=== PATIENT | male | born 1935 | race Caucasian/White ===

== ENCOUNTER 2017-08-13 09:23 | Inpatient (IN) | payer MEDICARE, OTHER ==
[2017-08-13 10:09] LABS: #Lymphocytes 0.7 thou/uL (1.20-3.40); #Monocytes 1.4 thou/uL (0.11-0.59); #Neutrophils 15.6 thou/uL (1.40-6.50); %Eosinophils 0.1 % (0.0-10.0); %Lymphocytes 3.7 % (21.0-51.0); %Monocytes 7.9 % (0.0-10.0); Hematocrit 37.8 % (42.0-52.0); Mean Platelet Volume 8.9 fL (7.4-10.4); Red Blood Cell (RBC) Count 4.14 mill/uL (4.70-6.10); White Blood Cell (WBC) Count 17.6 thou/uL (4.8-10.8)
[2017-08-13 10:23] LABS: Bilirubin Negative (Negative); Blood, Urine Large (Negative); Glucose, Urine (Dipstick) Negative (Negative); Ketone, Urine Trace mg/dL (Negative); Nitrite Positive (Negative); Protein, Urine (Dipstick) 100 mg/dL (Neg-Trace)
[2017-08-13 10:25] LABS: Bacteria/HPF 4+ HPF (None Seen); Hyaline Casts/LPF 0-3 HYALINE CAST LPF (0-3 Hyaline); RBC/HPF 21-50 HPF (0-3); Squamous Epithelial 0-3 HPF (0-3)
[2017-08-13 10:26] LABS: Lactic Acid - Sepsis 1.1 mmol/L (0.5-2.2)
[2017-08-13 10:32] LABS: PTT 40.1 SEC (22.9-36.1); Prothrombin Time 15.7 SEC (12.0-14.7)
[2017-08-13 10:50] LABS: ALT (SGPT) 10 U/L (8-55); AST (SGOT) 12 U/L (5-34); Alkaline Phosphatase 83 U/L (40-150); Anion Gap 13 mmol/L (10-20); BUN (Urea Nitrogen) 37 mg/dL (8.4-25.7); Bilirubin, Total 0.7 mg/dL (0.2-1.2); Calc. Creatinine Clearance 0 mL/min (70-130); Calcium 9.4 mg/dL (7.8-10.44); Carbon Dioxide 25 mmol/L (23-31); Chloride 102 mmol/L (98-107); Estimated GFR-MDRD 28; Globulin 3.6 g/dL (2.4-3.5); Protein, Total 7.2 g/dL (5.8-8.1)
[2017-08-13 10:53] LABS: Troponin I 0.023 ng/mL (< 0.028)
[2017-08-13 10:54] LABS: CK (CPK) 78 U/L (30-200); Lipase 17 U/L (8-78)
--- NOTE | 2017-08-13 11:20 | RAD ---
PORTABLE CHEST ONE VIEW: Date: 08-13-17 Time: 11:05 a.m. History: Fever. FINDINGS: Comparison made with exam of 07-19-16. The heart size is borderline but stable. Left sided ICD remains in place. The aorta is tortuous with aeration of the right hemidiaphragm. Chronic changes in the lung wild are again seen. No consolid ation, pneumothorax, gilberto pleural edema or pleural effusions are identified. IMPRESSION: No acute process. POS: JESSIKAH
[2017-08-13] MEDS ORDERED: cefTRIAXone\\ROCEPHIN 1 GM, Syringe 0.4 ML in Sterile Water 9.6 ML SLOW IVP SCH (11:30)
--- NOTE | 2017-08-13 11:31 | ULT ---
VENOUS DOPPLER ULTRASOUND OF THE LEFT LOWER EXTREMITY: Date: 08/13/17 HISTORY: Left lower extremity swelling and pain. TECHNIQUE: Sky scale ultrasound with color flow and spectral Doppler imaging of the deep venous system of the left lower extremity is performed. FINDINGS: There is good flow, compression, and augmentation noted in the left common femoral, femoral, deep fe moral, popliteal, posterior tibial, and greater saphenous veins. IMPRESSION: No evidence of deep venous thrombosis in the left lower extremity. POS: JANIA
[2017-08-13] MEDS ORDERED: Milk Of Magnesia 30 ML UDCUP PO PRN (13:00)
[2017-08-13] MEDS ORDERED: Artificial Tears 18 DROP/0.9 ML EA EYE PRN (13:00)
[2017-08-13] MEDS ORDERED: Loratadine 10 MG TAB PO PRN (13:00)
[2017-08-13] MEDS ORDERED: Sodium Chloride 0.65% Nasal 44 ML BOT EA NARE PRN (13:00)
[2017-08-13] MEDS ORDERED: Eucerin (Mineral Oil/Petrolatum,White) 30 gm Jar TOP PRN (13:00)
[2017-08-13] MEDS ORDERED: Dextrose 50% Abboject 50 ML SYRINGE SLOW IVP PRN (13:00)
[2017-08-13] MEDS ORDERED: HYDROcodone/Acetaminophen 5/325 mg Tablet PO PRN (13:00)
[2017-08-13] MEDS ORDERED: hydrALAZINE 20 MG/ML VIAL SLOW IVP PRN (13:00)
[2017-08-13] MEDS ORDERED: Ondansetron HCl/PF 4 MG/2 ML Vial IVP PRN (13:00)
[2017-08-13] MEDS ORDERED: Mag-Al 1200 mg/1200 mg/30 ML UDCUP PO PRN (13:00)
[2017-08-13] MEDS ORDERED: HumaLOG 300 UNITS/3 ML VIAL SC PRN ×2 (13:00)
[2017-08-13] MEDS ORDERED: Dextrose 5% in Water 1,000 ML IV PRN (13:00)
[2017-08-13] MEDS ORDERED: Ondansetron ODT 4 MG TAB PO PRN (13:00)
[2017-08-13] MEDS ORDERED: cefTRIAXone\\ROCEPHIN 1 GM in Sodium Chloride 0.9% 100 ML IVPB SCH (13:00)
[2017-08-13] MEDS ORDERED: Sodium Chloride 0.9% 1,000 ML IV SCH (13:00)
[2017-08-13] MEDS ORDERED: Loperamide HCl 2 MG CAP PO PRN (13:00)
[2017-08-13] MEDS ORDERED: Senokot 8.6 MG TAB PO PRN (13:00)
[2017-08-13] MEDS ORDERED: Chloraseptic Spray 180 ml Bottle PO PRN (13:00)
[2017-08-13] MEDS ORDERED: Diabetic Tussin 200 MG/10 ML UDCUP PO PRN (13:00)
[2017-08-13 13:12] VITALS: BMI 24.8
[2017-08-13] MEDS ORDERED: PROVENTIL INHALER 6.7 G (200 INHALATIONS) INH PRN (14:04)
--- NOTE | 2017-08-13 14:39 | HP ---
PRIMARY CARE PHYSICIAN: [facility]. REASON FOR ADMISSION: Sepsis, urinary tract infection. HISTORY OF PRESENT ILLNESS: An 82-year-old male who has history of hypertension, diabetes type 2, h ypothyroidism and chronic kidney disease stage 3, who presented to the emergency room with complaint of generalized weakness. Patient reports that for the last 1 week, he is gradually getting more an d more weak. Initially, he was having increased frequency of urination. Last night, he was having difficulty urination. He was having burning discomfort and he was only able to void little amount b ecause of severe pain. Overnight, he became more and more weak. He was not able to ambulate and he was requiring lot of help. This was pretty much unusual for him and that is why decided to ca ll the paramedics. The patient was very weak requiring lot of assistance to make him ambulate and when he arrived in e emergency room, he was hemodynamically stable. At home, patient was having weakness. He was feeling chills, but he did not have any fever. He was not having any nausea, vomiting, diarrhea. He denies any chest pain, palpitations, or cough. He d enies any flu-like illness. He denies any fall or trauma. ALLERGIES: PENICILLIN. CURRENT HOME MEDICATIONS: Coreg 25 mg p.o. twice daily, Synthroid 75 mcg p.o. daily, glipizide 10 m g twice daily, lisinopril 40 mg p.o. daily. REVIEW OF SYSTEMS: The following complete review of systems was negative, unless otherwise mentione d in the HPI or below: CONSTITUTIONAL: Weight loss or gain, ability to conduct usual activities. SKIN: Rash, itching. EYES: Double vision, pain. ENT/MOUTH: Nose bleeding, neck stiffness, pain, tenderness. CARDIOVASCULAR: Palpitations, dyspnea on exertion, orthopnea. RESPIRATORY: Shortness of breath, wheezing, cough, hemoptysis, fever or night sweats. GASTROINTESTINAL: Poor appetite, abdominal pain, heartburn, nausea, vomiting, constipation, or diar karly. GENITOURINARY: Urgency, frequency, dysuria, nocturia. MUSCULOSKELETAL: Pain, swelling. NEUROLOGIC/PSYCHIATRIC: Anxiety, depression. ALLERGY/IMMUNOLOGIC: Skin rash, bleeding tendency. Please see my HPI for pertinent positive and negative. All other review of systems was reviewed and negative except as mentioned in the HPI. PAST MEDICAL HISTORY: History of cardiomyopathy treated with pacemaker/AICD, diabetes type 2, hyper tension, dyslipidemia, chronic kidney disease stage 3. PAST SURGICAL HISTORY: Back surgery, AICD/pacemaker placement. PAST PSYCHIATRIC HISTORY: Reviewed and negative. SOCIAL HISTORY: Patient is . He lives at home with his . He denies any tobacco, alcoho l or illicit drug abuse. FAMILY HISTORY: No strong family history of premature coronary artery disease, stroke or cancer. EMERGENCY ROOM COURSE: Patient was given IV fluid 2 liter, Rocephin 1 gram and Levaquin 750 mg. PHYSICAL EXAMINATION: VITAL SIGNS: On arrival, blood pressure 153/63, pulse 70, respiratory rate 21, temperature 98.7, sa turation 94% on room air. Weight 81.6 kilograms. GENERAL: Patient is currently alert, awake, hard of hearing, no obvious acute distress. HEAD: Normocephalic, atraumatic. EYES: Pupils round, reactive to light. Extraocular muscle intact. ENT: Oropharynx within normal limits. Moist mucous membranes. No oral lesions. No pharyngeal comfort thema, no exudates. NECK: Supple. Range of motion is normal. No meningeal signs of irritation. LUNGS: Clear to auscultation without any rhonchi or rales. CARDIAC: S1, S2 regular without any murmur. ABDOMEN: Soft, bowel sounds present, nontender, nondistended. No organomegaly, no suprapubic tende rness. BACK: Unremarkable, no CVA tenderness. EXTREMITIES: Upper extremity: Passive movement of all joints are normal. Lower extremity: No cordell ma. Good peripheral pulsation. SKIN: No skin rash. HEMATOLOGIC: No lymphadenopathy. PSYCHIATRIC: Normal affect. SIGNIFICANT LABS: EKG showing pacemaker rhythm. Chest x-ray based on my review, no acute cardiopul monary process. Ultrasound of lower extremity negative for DVT. CBC: WBC 17.6, hemoglobin 12.3, platelets 163. INR 1.2. BMP: Sodium 135, potassium 4.5, chloride 102, carbon dioxide 25, BUN 37, creatinine 2.22, glucose 287, calcium 9.4. Lactic acid 1.1. LFT: AST 12, ALT 10, alkaline phosphatase 83, albumin 3.6, CK-MB 0.9. Troponin I 0.023, CK is 78. BNP 271.9, lipase 17. Urinalysis is suggestive of urinary tract infection. Influenza screen negative. ASSESSMENT AND PLAN/IMPRESSION: 1. Sepsis, likely due to urinary tract infection secondary to acute cystitis. Patient is given IV fluid in the emergency room. The patient is given appropriate IV antibiotic therapy with Rocephin a nd Levaquin. We will follow up on blood and urine culture result. 2. Urinary tract infection with acute cystitis. Patient has classic symptoms of urinary tract infe ction. Patient is kept on Rocephin and levofloxacin based on renally adjusted dose and we will foll ow up on culture result and change antibiotic therapy accordingly. 3. Generalized weakness, likely due to underlying infection and sepsis with urinary tract infection . Flu test is negative. The patient will need PT, OT while in hospital and based on that, we will decide whether he needs any rehab or correction home placement before discharge. 4. Acute on chronic kidney failure. The patient is going to receive 70 mL per hour for another 1 l iter of fluid. We will avoid too much fluids because of his history of cardiomyopathy to prevent an y fluid overload status. We will repeat BMP tomorrow. The patient has received 2 liters of IV flui d in the emergency room. 5. Elevated BNP. Patient has history of cardiomyopathy. We will obtain echocardiography to determ ine the type of cardiomyopathy. We will continue Coreg 25 mg p.o. daily, lisinopril 20 mg p.o. bennie y. 6. Hypothyroidism. We will continue Synthroid 100 mcg p.o. daily. 7. Gastroesophageal reflux disease. We will continue Protonix 40 mg p.o. daily. 8. Dyslipidemia. We will continue Zocor 40 mg p.o. at bedtime. 9. Diabetes type 2. We will continue glipizide 10 mg p.o. twice daily. Diabetic diet will be give n and insulin as per sliding scale per protocol. 10. Deep venous thrombosis prophylaxis, heparin 5000 units subQ twice daily. 11. Gastrointestinal prophylaxis, Protonix 40 mg p.o. daily. 12. CODE STATUS: The patient is FULL CODE. The patient's is surrogate decision maker. Disposition plan based on clinical course. We are expecting patient's stay in hospital more than 2 midnights. Plan of care discussed with the patient at bedside in the emergency room.
[2017-08-13] MEDS: glipiZIDE 10 MG TAB PO SCH (16:31)
[2017-08-13] MEDS: Atorvastatin Calcium 20 MG TAB PO SCH (20:36)
[2017-08-13] MEDS: Carvedilol 25 MG TAB PO SCH (20:37)
[2017-08-13] MEDS: Lisinopril 20 MG TAB PO SCH (20:37)
[2017-08-13] MEDS: Zolpidem Tartrate 5 MG TAB PO PRN (20:37)
[2017-08-13] MEDS: Acetaminophen 325 MG TAB PO PRN (20:37)
[2017-08-13] MEDS: Heparin 5,000 UNITS/ML VIAL SC SCH (20:39)
[2017-08-13] MEDS: Brimonidine Tartrate 0.2% Ophth Soln 5 ml Bottle EA EYE SCH (20:40)
[2017-08-13] MEDS ORDERED: Latanoprost 0.005% Ophth Soln 2.5 ml Bottle EA EYE SCH (21:00)
[2017-08-13] MEDS ORDERED: FLU VACC TS2017-18 (>65YR) 0.5 ML SYRINGE IM ONE (21:00)
[2017-08-14 04:47] LABS: #Lymphocytes 1.3 thou/uL (1.20-3.40); #Monocytes 1.4 thou/uL (0.11-0.59); %Basophils 0.2 % (0.0-1.0); %Eosinophils 0.3 % (0.0-10.0); %Lymphocytes 8.3 % (21.0-51.0); %Monocytes 8.7 % (0.0-10.0); Mean Platelet Volume 9.1 fL (7.4-10.4); Red Blood Cell (RBC) Count 3.26 mill/uL (4.70-6.10); White Blood Cell (WBC) Count 15.7 thou/uL (4.8-10.8)
[2017-08-14 04:52] LABS: ALT (SGPT) 7 U/L (8-55); AST (SGOT) 11 U/L (5-34); Alkaline Phosphatase 66 U/L (40-150); Anion Gap 11 mmol/L (10-20); BUN (Urea Nitrogen) 34 mg/dL (8.4-25.7); Bilirubin, Total 0.4 mg/dL (0.2-1.2); Calc. Creatinine Clearance 32 mL/min (70-130); Calcium 8.4 mg/dL (7.8-10.44); Carbon Dioxide 24 mmol/L (23-31); Chloride 107 mmol/L (98-107); Estimated GFR-MDRD 33; Protein, Total 5.8 g/dL (5.8-8.1)
[2017-08-14] MEDS: Levothyroxine Sodium 100 MCG TAB PO SCH (05:58)
--- NOTE | 2017-08-14 06:16 | PDOC.PN ---
- Subjective Encounter Start Date: 08/14/17 Encounter Start Time: 06:14 -: old records requested/rev Patient seen and examined. last night had high fever. no new complaints. No overnight events - Objective Resuscitation Status: Resuscitation Status FULL:Full Resuscitation MAR Reviewed: Yes Vital Signs & Weight: Vital Signs (12 hours) Temp Pulse Resp BP BP Pulse Ox 08/14/17 04:00 98.2 F 69 16 120/49 L 95 08/14/17 00:00 97.7 F 70 18 107/53 L 92 L 08/13/17 20:37 120/54 L 08/13/17 20:00 101.0 F H 81 18 120/54 L 92 L Weight Weight 178 lb 4 oz Result Diagrams: 08/14/17 03:15 08/14/17 03:15 Additional Labs: Accuchecks 08/14/17 08/13/17 08/13/17 05:34 20:13 16:15 POC Glucose 142 H 216 H 189 H 08/13/17 13:23 POC Glucose 246 H Phys Exam - Physical Examination Constitutional: NAD HEENT: PERRLA, moist MMs, sclera anicteric Neck: no JVD, supple Respiratory: no wheezing, no rales, no rhonchi Cardiovascular: RRR, no significant murmur, no rub Gastrointestinal: soft, non-tender, no distention, positive bowel sounds Musculoskeletal: no edema, pulses present Neurological: non-focal, normal sensation, moves all 4 limbs Psychiatric: normal affect, A&O x 3 Skin: no rash, normal turgor Dx/Plan (1) Sepsis Code(s): A41.9 - SEPSIS, UNSPECIFIED ORGANISM Status: Acute (2) UTI (urinary tract infection) Status: Acute (3) Acute worsening of stage 3 chronic kidney disease Code(s): N18.3 - CHRONIC KIDNEY DISEASE, STAGE 3 (MODERATE) Status: Acute (4) Weakness generalized Code(s): R53.1 - WEAKNESS Status: Acute (5) Hypertension Code(s): I10 - ESSENTIAL (PRIMARY) HYPERTENSION Status: Chronic (6) Diabetes type 2, controlled Code(s): E11.9 - TYPE 2 DIABETES MELLITUS WITHOUT COMPLICATIONS Status: Chronic Qualifiers: Diabetes mellitus complication status: with kidney complications Diabetes mellitus complication detail: with chronic kidney disease Chronic kidney disease stage: stage 3 (moderate) (7) Hypothyroidism Code(s): E03.9 - HYPOTHYROIDISM, UNSPECIFIED Status: Chronic (8) GERD (gastroesophageal reflux disease) Code(s): K21.9 - GASTRO-ESOPHAGEAL REFLUX DISEASE WITHOUT ESOPHAGITIS Status: Chronic Qualifiers: Esophagitis presence: without esophagitis Qualified Code(s): K21.9 - Gastro -esophageal reflux disease without esophagitis (9) Dyslipidemia Code(s): E78.5 - HYPERLIPIDEMIA, UNSPECIFIED Status: Chronic (10) Glaucoma Code(s): H40.9 - UNSPECIFIED GLAUCOMA Status: Chronic - Plan cont current plan of care, continue antibiotics, PT/OT * renal function improving * wbc improving * follow on culture * repeat labs tomorrow * will get CT stone protocol today * medication reviewed as below * symptomatic treatment. * home medication reconciled * continue iv rocephin and levaquin Review of Systems - Review of Systems Constitutional: Fever, Weakness ENT: negative: Ear Pain, Ear Discharge, Nose Pain, Nose Discharge, Nose Congestion, Mouth Pain, Mouth Swelling, Throat Pain, Throat Swelling, Other Respiratory: negative: Cough, Dry, Shortness of Breath, Hemoptysis, SOB with Excertion, Pleuritic Pain, Sputum, Wheezing Cardiovascular: negative: Chest Pain, Palpitations, Orthopnea, Paroxysmal Noc. Dyspnea, Edema, Light Headedness, Other Gastrointestinal: negative: Nausea, Vomiting, Abdominal Pain, Diarrhea, Constipation, Melena, Hematochezia, Other Genitourinary: Dysuria. negative: Frequency, Incontinence, Hematuria, Retention , Other Musculoskeletal: negative: Neck Pain, Shoulder Pain, Arm Pain, Back Pain, Hand Pain, Leg Pain, Foot Pain, Other Skin: negative: Rash, Lesions, Carlos, Bruising, Other - Medications/Allergies Allergies/Adverse Reactions: Allergies Allergy/AdvReac Type Severity Reaction Status Date / Time Penicillins Allergy Verified 08/13/17 13:24 Medications: Current Medications Acetaminophen (Tylenol) 650 mg PO Q4H PRN PRN Reason: Headache/Fever or Pain Last Admin: 08/13/17 20:37 Dose: 650 mg Hydrocodone Bitart/Acetaminophen (Jemison 5/325) 1 tab PO Q4H PRN PRN Reason: Moderate Pain (4-6) Al Hydroxide/Mg Hydroxide (Maalox) 30 ml PO Q6H PRN PRN Reason: Heartburn or Indigestion Albuterol Sulfate (Proventil Hfa) 1 puff INH Q4H PRN PRN Reason: SOB &/or Wheezing Artificial Tears (Tears Naturale) 0 drop EA EYE PRN PRN PRN Reason: Dry Eyes Atorvastatin Calcium (Lipitor) 20 mg PO HS [facility] Last Admin: 08/13/17 20:36 Dose: 20 mg Brimonidine Tartrate (Alphagan 0.2% Ophth Soln) 1 drop EA EYE BID [facility] Last Admin: 08/13/17 20:40 Dose: Not Given Carvedilol (Coreg) 25 mg PO BID [facility] Last Admin: 08/13/17 20:37 Dose: 25 mg Dextrose/Water (Dextrose 50%) 25 gm SLOW IVP PRN PRN PRN Reason: Hypoglycemia Glipizide (Glucotrol) 10 mg PO BID-AC [facility] Last Admin: 08/13/17 16:31 Dose: 10 mg Glucagon (Glucagon) 1 mg IM PRN PRN PRN Reason: Hypoglycemia Guaifenesin (Robitussin Sf) 200 mg PO Q4H PRN PRN Reason: Cough Heparin Sodium (Porcine) (Heparin) 5,000 units SC BID [facility] Last Admin: 08/13/17 20:39 Dose: 5,000 units Hydralazine HCl (Apresoline) 10 mg SLOW IVP Q4H PRN PRN Reason: Systolic BP > 180 Dextrose/Water (D5w) 1,000 mls @ 0 mls/hr IV .Q0M PRN; As Directed PRN Reason: Hypoglycemia Levofloxacin 500 mg/ Device 100 mls @ 100 mls/hr IVPB 1100 [facility] Ceftriaxone Sodium 1 gm/ (Syringe 0.4 ml/ Sterile Water) 10 mls @ 120 mls/hr SLOW IVP 1100 [facility] Insulin Human Lispro (Humalog) 0 units SC .MODERATE SLIDING SC PRN PRN Reason: Moderate Correctional Scale Insulin Human Lispro (Humalog) 0 units SC .BEDTIME SLIDING SC PRN PRN Reason: Bedtime Correctional Scale Levothyroxine Sodium (Synthroid) 100 mcg PO 0600 [facility] Last Admin: 08/14/17 05:58 Dose: 100 mcg Lisinopril (Zestril) 20 mg PO BID [facility] Last Admin: 08/13/17 20:37 Dose: Not Given Loperamide HCl (Imodium) 2 mg PO PRN PRN PRN Reason: Diarrhea/Loose Stools Loratadine (Claritin) 10 mg PO DAILYPRN PRN PRN Reason: Sinus Symptoms Magnesium Hydroxide (Milk Of Magnesium) 30 ml PO DAILYPRN PRN PRN Reason: Constipation Mineral Oil/White Petrolatum (Eucerin Cream) 0 gm TOP BIDPRN PRN PRN Reason: Dry Skin Ondansetron HCl (Zofran Odt) 4 mg PO Q6H PRN PRN Reason: Nausea/Vomiting Ondansetron HCl (Zofran) 4 mg IVP Q6H PRN PRN Reason: Nausea/Vomiting Pantoprazole Sodium (Protonix) 40 mg PO DAILY [facility] Travatan Z ( Travoprost) 0.004% Ophthalmic Solution 0 each EA EYE HS [facility] Phenol (Chloraseptic Meridian 180 Ml Bot) 0 ml PO PRN PRN PRN Reason: Sore Throat Saccharomyces Boulardii (Florastor) 250 mg PO DAILY [facility] Senna (Senokot) 2 tab PO HSPRN PRN PRN Reason: Constipation Sodium Chloride (Benson Nasal Meridian 0.65%) 0 ml EA NARE QIDPRN PRN PRN Reason: Nasal Congestion Sodium Chloride (Flush - Normal Saline) 10 ml IVF Q12HR [facility] Last Admin: 08/13/17 20:39 Dose: Not Given Sodium Chloride (Flush - Normal Saline) 10 ml IVF PRN PRN PRN Reason: Saline Flush Zolpidem Tartrate (Ambien) 5 mg PO HSPRN PRN PRN Reason: Insomnia Last Admin: 08/13/17 20:37 Dose: 5 mg
[2017-08-14] MEDS: glipiZIDE 10 MG TAB PO SCH ×2 (08:09→16:49)
[2017-08-14] MEDS: Saccharomyces boulardii 250 MG CAP PO SCH (08:10)
[2017-08-14] MEDS: Carvedilol 25 MG TAB PO SCH ×2 (08:10→20:39)
[2017-08-14] MEDS: Heparin 5,000 UNITS/ML VIAL SC SCH ×2 (08:11→20:40)
[2017-08-14] MEDS: Lisinopril 20 MG TAB PO SCH ×2 (08:11→20:39)
[2017-08-14] MEDS: Brimonidine Tartrate 0.2% Ophth Soln 5 ml Bottle EA EYE SCH ×4 (08:13→20:41)
[2017-08-14] MEDS: Acetaminophen 325 MG TAB PO PRN ×2 (08:22→16:51)
--- NOTE | 2017-08-14 10:22 | CT ---
CT ABDOMEN AND PELVIS WITHOUT CONTRAST STONE PROTOCOL: HISTORY: Urinary tract infection, sepsis. COMPARISON: CT abdomen and pelvis from 2016. FINDINGS: There are some fibrotic changes in the lung bases. Calcified granulomas present along both hilum. No pericardial effusion. Cholelithiasis is present. There is a nodule at the left adrenal gland whi ch has not significantly changed from the comparison examination and has attenuation of an adenoma. There are bilateral renal cysts, similar to the comparison examination. There ectasia of the abdominal aorta with a focal dilatation just proximal to the iliac artery takeof f measuring up to 2.8 cm. 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 T he right common iliac artery measures 2.8 cm. The left common iliac artery measures up to 2.3 cm. E xtensive atherosclerotic plaque. No hydronephrosis. No calculi within the ureters. Mild vascular c alcifications. No renal calculi are definitively seen and the calcifications that are seen at the re nal sinus are felt to be vascular in nature. Noncontrast evaluation of the spleen and liver are unremarkable. Appendix is visualized and is elie l. Posterior spinal fusion of L3-L5 is present. Superior degenerative disk space disease at L5-S1. No significant ventral hernia. IMPRESSION: 1. No nephroureteral lithiasis or hydroureteral nephrosis. No secondary evidence of recently passed stone. 2. Similar appearance to the bilateral exophytic renal cysts. 3. 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 4. Normal appendix. 5. Cholelithiasis. 6. Small sliding hiatal hernia. 7. Mild fibrotic changes of the lung bases. POS: [facility]
[2017-08-14] MEDS: cefTRIAXone\\ROCEPHIN 1 GM, Syringe 0.4 ML in Sterile Water 9.6 ML SLOW IVP SCH (13:54)
[2017-08-14] MEDS: Atorvastatin Calcium 20 MG TAB PO SCH (20:38)
[2017-08-14] MEDS: TRAVATAN Z 0.004% EA EYE SCH (20:40)
[2017-08-14] MEDS: Latanoprost 0.005% Ophth Soln 2.5 ml Bottle EA EYE SCH (20:41)
[2017-08-14] MEDS: Zolpidem Tartrate 5 MG TAB PO PRN (21:28)
[2017-08-15] MEDS: Acetaminophen 325 MG TAB PO PRN (04:13)
[2017-08-15 04:26] LABS: #Eosinphils 0.2 thou/uL (0.0-0.7); #Lymphocytes 0.9 thou/uL (1.20-3.40); #Monocytes 0.8 thou/uL (0.11-0.59); #Neutrophils 8.6 thou/uL (1.40-6.50); %Basophils 0.1 % (0.0-1.0); %Eosinophils 1.8 % (0.0-10.0); %Lymphocytes 8.3 % (21.0-51.0); %Monocytes 7.6 % (0.0-10.0); Hematocrit 29.9 % (42.0-52.0); Red Blood Cell (RBC) Count 3.24 mill/uL (4.70-6.10); White Blood Cell (WBC) Count 10.4 thou/uL (4.8-10.8)
[2017-08-15 04:45] LABS: Anion Gap 11 mmol/L (10-20); BUN (Urea Nitrogen) 34 mg/dL (8.4-25.7); BUN/Creatinine Ratio 17.17; Calc. Creatinine Clearance 32 mL/min (70-130); Calcium 8.6 mg/dL (7.8-10.44); Carbon Dioxide 23 mmol/L (23-31); Chloride 109 mmol/L (98-107); Estimated GFR-MDRD 32; Phosphorus 2.5 mg/dL (2.3-4.7)
[2017-08-15] MEDS: Levothyroxine Sodium 100 MCG TAB PO SCH (05:38)
[2017-08-15] MEDS: Carvedilol 25 MG TAB PO SCH ×2 (09:37→21:20)
[2017-08-15] MEDS: Lisinopril 20 MG TAB PO SCH ×2 (09:38→21:21)
[2017-08-15] MEDS: Saccharomyces boulardii 250 MG CAP PO SCH (09:38)
[2017-08-15] MEDS: glipiZIDE 10 MG TAB PO SCH ×2 (09:39→17:23)
[2017-08-15] MEDS: Heparin 5,000 UNITS/ML VIAL SC SCH ×2 (09:40→21:21)
[2017-08-15] MEDS: Brimonidine Tartrate 0.2% Ophth Soln 5 ml Bottle EA EYE SCH ×4 (09:49→21:20)
--- NOTE | 2017-08-15 11:37 | PDOC.PN ---
- Subjective Encounter Start Date: 08/15/17 Encounter Start Time: 11:35 Mr. Bardales was seen today in follow-up of UTI. He is complaining of some pain in the back of his thigh on the left leg. He says it happens mainly when he walking on it. He admits this has been going on for some time prior to admission. - Objective Resuscitation Status: Resuscitation Status FULL:Full Resuscitation MAR Reviewed: Yes Vital Signs & Weight: Vital Signs (12 hours) Temp Pulse Resp BP BP Pulse Ox 08/15/17 10:56 97.7 F 69 16 155/79 H 93 L 08/15/17 09:38 158/76 H 08/15/17 08:01 98.2 F 69 16 133/70 92 L 08/15/17 08:00 98.2 F 69 16 92 L 08/15/17 04:00 98.7 F 69 18 134/64 92 L 08/15/17 00:00 97.9 F 70 18 131/56 L 95 Weight Weight 178 lb 4 oz I&O: 08/14/17 08/15/17 08/16/17 06:59 06:59 06:59 Intake Total 400 700 Output Total 250 Balance 400 450 Result Diagrams: 08/15/17 03:43 08/15/17 03:43 Additional Labs: Accuchecks 08/15/17 08/14/17 08/14/17 04:10 20:02 16:19 POC Glucose 135 H 207 H 172 H Phys Exam - Physical Examination HEENT: PERRLA Respiratory: no wheezing, no rales, no rhonchi, clear to auscultation bilateral Cardiovascular: RRR, no significant murmur, no rub Gastrointestinal: soft, non-tender, positive bowel sounds Musculoskeletal: no edema no redness no warmth, in the left leg Dx/Plan (1) UTI (urinary tract infection) Status: Acute (2) Acute worsening of stage 3 chronic kidney disease Code(s): N18.3 - CHRONIC KIDNEY DISEASE, STAGE 3 (MODERATE) Status: Acute (3) Weakness generalized Code(s): R53.1 - WEAKNESS Status: Acute (4) Diabetes type 2, controlled Code(s): E11.9 - TYPE 2 DIABETES MELLITUS WITHOUT COMPLICATIONS Status: Chronic Qualifiers: Diabetes mellitus complication status: with kidney complications Diabetes mellitus complication detail: with chronic kidney disease Chronic kidney disease stage: stage 3 (moderate) (5) Hypertension Code(s): I10 - ESSENTIAL (PRIMARY) HYPERTENSION Status: Chronic (6) Hypothyroidism Code(s): E03.9 - HYPOTHYROIDISM, UNSPECIFIED Status: Chronic - Plan * UTI due to E. Coli which is vitale- sensitive- can consider switching him to oral Levaquin * He has not had any fever today * Acute on chronic kidney injury- his renal function has returned to close to baseline * DM- blood glucose is stable.
[2017-08-15] MEDS: cefTRIAXone\\ROCEPHIN 1 GM, Syringe 0.4 ML in Sterile Water 9.6 ML SLOW IVP SCH (11:39)
[2017-08-15] MEDS ORDERED: traMADol HCl 50 MG TAB PO PRN (12:17)
[2017-08-15] MEDS: Atorvastatin Calcium 20 MG TAB PO SCH (21:20)
[2017-08-15] MEDS: Latanoprost 0.005% Ophth Soln 2.5 ml Bottle EA EYE SCH (21:21)
[2017-08-15] MEDS: TRAVATAN Z 0.004% EA EYE SCH (21:22)
[2017-08-15] MEDS: Zolpidem Tartrate 5 MG TAB PO PRN (21:23)
[2017-08-16] MEDS ORDERED: Lorazepam 1 MG TAB PO SCH (01:00)
[2017-08-16] MEDS: Acetaminophen 325 MG TAB PO PRN (03:46)
[2017-08-16] MEDS: Levothyroxine Sodium 100 MCG TAB PO SCH (05:18)
[2017-08-16] MEDS ORDERED: Haloperidol 1 MG TAB PO SCH (07:30)
[2017-08-16] MEDS: glipiZIDE 10 MG TAB PO SCH (07:51)
[2017-08-16 08:57] VITALS: BP 161/73; TEMP 97.7
[2017-08-16] MEDS ORDERED: LINAGLIPTIN 5 MG PO SCH (09:00)
[2017-08-16] MEDS ORDERED: Alogliptin Benzoate 6.25 MG TABLET PO SCH (09:00)
[2017-08-16] MEDS: Lisinopril 20 MG TAB PO SCH (09:08)
[2017-08-16] MEDS: Saccharomyces boulardii 250 MG CAP PO SCH (09:08)
[2017-08-16] MEDS: Carvedilol 25 MG TAB PO SCH (09:08)
[2017-08-16] MEDS: Heparin 5,000 UNITS/ML VIAL SC SCH (09:13)
[2017-08-16] MEDS: Brimonidine Tartrate 0.2% Ophth Soln 5 ml Bottle EA EYE SCH ×2 (09:17→09:49)
--- NOTE | 2017-08-16 10:22 | PDOC.PN ---
- Subjective Encounter Start Date: 08/16/17 Encounter Start Time: 10:20 Mr. Bardales does not have any complaints. He had an episode of confusion last night. He is improved today. He was seen in follow-up of UTI - Objective Resuscitation Status: Resuscitation Status FULL:Full Resuscitation MAR Reviewed: Yes Vital Signs & Weight: Vital Signs (12 hours) Temp Pulse Resp BP BP Pulse Ox 08/16/17 09:08 161/73 H 08/16/17 08:00 97.7 F 71 16 161/73 H 97 08/16/17 04:48 98.2 F 71 20 162/61 H 98 Weight Weight 178 lb 4 oz I&O: 08/15/17 08/16/17 08/17/17 06:59 06:59 06:59 Intake Total 700 70 Output Total 250 Balance 450 70 Result Diagrams: 08/15/17 03:43 08/15/17 03:43 Additional Labs: Accuchecks 08/16/17 08/15/17 08/15/17 04:53 20:08 16:47 POC Glucose 148 H 143 H 91 08/15/17 10:59 POC Glucose 167 H Phys Exam - Physical Examination HEENT: PERRLA Respiratory: no wheezing, no rales, no rhonchi, clear to auscultation bilateral Cardiovascular: RRR, no significant murmur Gastrointestinal: soft, non-tender, positive bowel sounds Musculoskeletal: no edema Dx/Plan (1) UTI (urinary tract infection) Status: Acute (2) Acute worsening of stage 3 chronic kidney disease Code(s): N18.3 - CHRONIC KIDNEY DISEASE, STAGE 3 (MODERATE) Status: Acute (3) Weakness generalized Code(s): R53.1 - WEAKNESS Status: Acute (4) Diabetes type 2, controlled Code(s): E11.9 - TYPE 2 DIABETES MELLITUS WITHOUT COMPLICATIONS Status: Chronic Qualifiers: Diabetes mellitus complication status: with kidney complications Diabetes mellitus complication detail: with chronic kidney disease Chronic kidney disease stage: stage 3 (moderate) (5) Hypertension Code(s): I10 - ESSENTIAL (PRIMARY) HYPERTENSION Status: Chronic (6) Hypothyroidism Code(s): E03.9 - HYPOTHYROIDISM, UNSPECIFIED Status: Chronic - Plan * UTI- due to E. Coli- improved * HTN- blood pressure is slightly elevated- this can be managed further as an outpatient * Stable for discharge home.
--- NOTE | 2017-08-16 11:43 | PQF ---
CLINICAL DOCUMENTATION IMPROVEMENT CLARIFICATION FORM: ICD-10 Updated PLEASE DO AN ADDENDUM TO THE PROGRESS NOTE WITH ANY DOCUMENTATION UPDATES OR ADDITIONS AND CARRY THROUGH TO DC SUMMARY. THANK YOU. DATE: 08/16/17 ATTN: DR. MCGILL Please exercise your independent, professional judgment in responding to the clarification form. Clinical indicators are provided on the bottom of this form for your review Please check appropriate box(s): [ X] Encephalopathy: Type: [ X ] Acute [ ] Subacute [ ] Chronic Etiology: [ ] Hypertensive [X ] Metabolic [ ] Toxic [ ] Hepatic with Coma [ ] Hepatic w/o Coma [ ] Hypoxic [ X] Septic [ ] Drug induced: [ ] Unspecified [ ] in the setting of underlying dementia [ ] Other (please specify) [ ] Transient Alteration of Awareness [ ] Other diagnosis [ ] Unable to determine In addition, please specify: Present on Admission (POA): [ X ] Yes [ ] No [ ] Unable to determine For continuity of documentation, please document condition throughout progress notes and discharge summary. Thank You. CLINICAL INDICATORS - SIGNS / SYMPTOMS / LABS NURSE'S NOTE 08/16: "PATIENT TRYING TO 'GET OUT OF HERE' ATTEMPTING TO WALK IN THE HALLWAY TO 'GET HOME.' DX: SEPSIS RISKS: SEPSIS WITH UTI ADVANCED AGE TREATMENT: IV FLUIDS (ER) IV ROCEPHIN IV LEVAQUIN (ER) HALDOL (This form is maintained as a part of the permanent medical record) 2014 [employer]. All Rights Reserved WALTER [email or web address] Office: [phone] [facility] HOSPITALDaisy
--- NOTE | 2017-08-16 12:47 | DIS ---
DATE OF ADMISSION: 08/13/2017 DATE OF DISCHARGE: 08/16/2017 The patient has the primary care through the [facility]. DISCHARGE DISPOSITION: Home. PRIMARY DISCHARGE DIAGNOSES: 1. Urinary tract infection secondary to Escherichia coli. 2. Hypertension. 3. Diabetes mellitus, type 2. 4. Hypothyroidism. 5. History of cardiomyopathy, pacemaker and automatic implantable cardioverter defibrillator. DISCHARGE MEDICATIONS: Include Levaquin 500 mg 1 p.o. daily for 5 days, simvastatin 40 mg at bedtime , Florastor 250 mg daily for 30 days, omeprazole 40 mg daily, lisinopril 20 mg twice a day, Tradjenta 5 mg daily, levothyroxine 100 mcg daily, glipizide 10 mg twice a daily, carvedilol 25 mg twice daily , Alphagan 0.2% in each eye twice a day and albuterol inhaler q.4 hours as needed. CODE STATUS: FULL CODE. ALLERGIES: PENICILLIN. HOSPITAL COURSE: Mr. Bardales is a pleasant 82-year-old gentleman who was brought to the emergency ro om after experiencing generalized weakness and increased urination. He was found to have a urinary t ract infection secondary to Escherichia coli. He also had sepsis syndrome with an elevated white blo od cell count and fever. The urine culture grew E. coli which was pansensitive. He was transitioned to oral Levaquin and then subsequently able to be discharged home with close outpatient followup at the [facility].
--- NOTE | 2017-08-19 16:48 | PQF ---
SAI LÓPEZ TONI MD [id number] [id number] CLINICAL DOCUMENTATION CLARIFICATION FORM: POST DISCHARGE Please clarify if documented "sepsis (syndrome)" can be further specified. H&P; "Sepsis likely due to urinary tract infection." PN 08/17; "UTI due to E. Coli which is vitale sensitive can consider switching him to oral Levaquin". PRIMARY DISCHARGE DIAGNOSES; (1) Urinary Tract Infection secondary to Escherichia coli. DISCHARGE SUMMARY; "He was found to have a urinary tract infection secondary to Escherichia coli. He also had Sepsis Syndrome with an elevated white blood cell count and fever." Please exercise your independent, professional judgment in responding to the clarification form. Clinical indicators are provided on the bottom of this form for your review. Thank you. Please check appropriate box(s): [ ] Sepsis due to: (PNA, UTI, gangrenous gall bladder, etc.) [ ] Severe sepsis with acute organ dysfunction of: (Examples: respiratory failure, encephalopathy, acute kidney failure, other) [ ] Sepsis Ruled Out [ ] Localized infection without sepsis [ ] Other diagnosis [ ] Unable to determine In addition, please specify: Present on Admission (POA): [ ] Yes [ ] No [ ] Unable to determine For continuity of documentation, please document condition throughout progress notes and discharge summary. Thank You. CLINICAL INDICATORS - SIGNS / SYMPTOMS / LABS Altered mental status Fever or hypothermia (<96.8 F/36 C or > 100.4 F/38C) Respiratory rate >22/min, Hypoxemia, SBP <100mmHg Metabolic acidosis Lactic Acid >2mmol/L, Increase BUN/Agronomy Professor, decrease GFR, coag abnormalities, thrombocytopenia-plts <100k Oliguria Shock-hypotension resistant to IV fluid boluses WBC count (>12,000/mm^4 or <4000/mm^3 or 10% neuts, 10% bands) Hyperglycemia in absence of diabetes mellitus Positive blood cultures RISK FACTORS Infection/Bacteremia Pneumonia, UTI, infected wound, gangrenous gall bladder Diabetes or Cancer Surgery / surgical instrumentation / trauma Ruptured/perforated bowel, ruptured appendix Immunosuppression Advancing Age TREATMENTS: Initiation Sepsis Protocol ICU Daily CBC Blood/sputum/wound cultures ID Consult IV antibiotics - broad spectrum IV fluids Vasopressors, meds (This form is maintained as a part of the permanent medical record) 2014 [employer]. All Rights Reserved LEONILA [email or web address] [phone] [email or web address]
== END 2017-08-16 11:21 | disposition home or self-care (01) | DRG 689 ==
LOC: ERS 09:23 → T4-B 11:05
PROVIDERS: ADMIT Internal Medicine; ATTEND Internal Medicine
DX: N30.00 Acute cystitis without hematuria (principal); G93.41 Metabolic encephalopathy; N17.9 Acute kidney failure, unspecified; I42.9 Cardiomyopathy, unspecified; E11.22 Type 2 diabetes mellitus with diabetic chronic kidney disease; N18.3 Chronic kidney disease, stage 3 (moderate); I12.9 Hypertensive chronic kidney disease with stage 1 through stage 4 chronic kidney disease, or unspecified chronic kidney disease; B96.20 Unspecified Escherichia coli [E. coli] as the cause of diseases classified elsewhere; E03.9 Hypothyroidism, unspecified; Z95.810 Presence of automatic (implantable) cardiac defibrillator; K21.9 Gastro-esophageal reflux disease without esophagitis; H40.9 Unspecified glaucoma; Z23 Encounter for immunization
CPT/HCPCS: 36415; 36416; 71010; 74176; 80053; 80069; 81003; 81015; 82553; 83605; 83690; 83880; 84484; 85025; 85610; 85730; 87040; 87077; 87086; 87149; 87186; 90471; 90682; 93005; 93306; 96365; 96375; A4216; G0008; G8978-GP-CI; G8978-GP-CJ; G8979-GP-CI; G8980-GP-CI; G8987-GO-CI; G8988-GO-CI; G8989-GO-CI; J0696; J1644; J1956; Q2036

== ENCOUNTER 2019-02-20 13:21 | Inpatient (IN) | payer MEDICARE, OTHER ==
--- NOTE | 2019-02-20 13:44 | RAD ---
Chest one view HISTORY: Chest pain. Slurred speech. COMPARISON: 08/13/2000 FINDINGS: Cardiac silhouette is magnified and enlarged. Pulmonary vasculature is slightly engorged an d accentuated by shallow inspiration. Right is slightly elevated. Ill-defined parenchymal opacity at the right base has progressed significantly since the 2017 exam. Some component of atelectasis. Sm all amount of fluid in the minor fissure on the right. Mediastinum remains midline with aortic calcification and a multi lead left subclavian electronic dev ice. No evidence of pneumothorax. IMPRESSION: Parenchymal opacity at the right base may represent inflammatory infiltrate and/or atelec tasis. It and a small amount of pleural fluid have progressed since the 2017 exam. Clinical correlation regarding other signs and symptoms of right basilar pneumonitis is required. Please [place] follow-up evaluation with PA and lateral views of the chest after medical treatment to evaluate for clearing. Atherosclerosis. Mild pulmonary vascular distention.
[2019-02-20 13:45] LABS: #Eosinphils 0.3 thou/uL (0.0-0.7); #Lymphocytes 1.5 thou/uL (1.20-3.40); #Monocytes 0.7 thou/uL (0.11-0.59); %Eosinophils 3.2 % (0.0-10.0); %Lymphocytes 17.2 % (21.0-51.0); %Monocytes 8.4 % (0.0-10.0); %Neutrophils 71.2 % (42.0-75.0); Hemoglobin 11.6 g/dL (14.0-18.0); Mean Corpuscular Hemoglobin 30.2 pg (27.0-31.0); Mean Corpuscular Volume 88.7 fL (78.0-98.0); Mean Platelet Volume 8.8 fL (7.4-10.4); Platelet Count 236 thou/uL (130-400); RBC Distribution Width 12.2 % (11.5-14.5); Red Blood Cell (RBC) Count 3.85 mill/uL (4.70-6.10); White Blood Cell (WBC) Count 8.5 thou/uL (4.8-10.8)
[2019-02-20 13:50] LABS: INR-International Normal Ratio 1.2; PTT 34.9 SEC (22.9-36.1); Prothrombin Time 14.9 SEC (12.0-14.7)
--- NOTE | 2019-02-20 13:58 | CT ---
BRAIN CT WITHOUT IV CONTRAST: Date: 02/20/19 HISTORY: Confusion. COMPARISON: 06/29/15. FINDINGS: Atrophy and chronic white matter ischemic changes are noted bilaterally. No focal mass or midline donte ft. No intra or extra-axial hemorrhage. IMPRESSION: No significant acute intracranial process. No mass or bleed. Stable atrophy and chronic white matter ischemic change. POS: [facility]
[2019-02-20 14:09] LABS: ALT (SGPT) 13 U/L (8-55); AST (SGOT) 16 U/L (5-34); Albumin 3.4 g/dL (3.4-4.8); Alkaline Phosphatase 94 U/L (40-150); Anion Gap 16 mmol/L (10-20); BUN (Urea Nitrogen) 47 mg/dL (8.4-25.7); Bilirubin, Total 0.3 mg/dL (0.2-1.2); CK (CPK) 29 U/L (30-200); Calc. Creatinine Clearance 0 mL/min (70-130); Calcium 9.3 mg/dL (7.8-10.44); Carbon Dioxide 23 mmol/L (23-31); Chloride 105 mmol/L (98-107); Estimated GFR-MDRD 32; Globulin 2.9 g/dL (2.4-3.5); Glucose 200 mg/dL (83-110); Potassium 4.6 mmol/L (3.5-5.1); Protein, Total 6.3 g/dL (5.8-8.1); Sodium 139 mmol/L (136-145)
[2019-02-20] MEDS ORDERED: Acetaminophen 325 MG TAB PO PRN (16:18)
[2019-02-20] MEDS ORDERED: HumaLOG 300 UNITS/3 ML VIAL SC PRN (16:28)
[2019-02-20] MEDS ORDERED: Dextrose 5% in Water 1,000 ML IV PRN (16:28)
[2019-02-20] MEDS ORDERED: Dextrose 50% Abboject 50 ML SYRINGE SLOW IVP PRN (16:28)
[2019-02-20] MEDS ORDERED: Sodium Chloride 0.9% 500 ML IV SCH (16:30)
[2019-02-20 16:38] LABS: Bilirubin Negative (Negative); Blood, Urine Negative (Negative); Clarity CLEAR (Clear); Glucose, Urine (Dipstick) Negative (Negative); Leukocyte Small (Negative); Nitrite Negative (Negative); Protein, Urine (Dipstick) Negative (Neg-Trace); Specific Gravity, Urine 1.015 (1.002-1.036); Urobilinogen 0.2 mg/dL (0.2-1.0)
[2019-02-20 16:39] LABS: Bacteria/HPF None Seen HPF (None Seen); Hyaline Casts/LPF 0-3 HYALINE CAST LPF (0-3 Hyaline); RBC/HPF 0-3 HPF (0-3); Squamous Epithelial None Seen HPF (0-3)
[2019-02-20 17:35] VITALS: BMI 23.5
[2019-02-20] MEDS: glipiZIDE 10 MG TAB PO SCH (18:31)
[2019-02-20] MEDS ORDERED: Lorazepam 2 MG/ML VIAL SLOW IVP PRN (20:40)
[2019-02-20] MEDS ORDERED: Lisinopril 20 MG TAB PO SCH (21:00)
[2019-02-20] MEDS ORDERED: Simvastatin 40 MG TAB PO SCH (21:00)
[2019-02-20] MEDS ORDERED: Famotidine 20 MG TAB PO SCH (21:00)
[2019-02-20] MEDS: Carvedilol 25 MG TAB PO SCH (21:05)
--- NOTE | 2019-02-20 22:48 | HP ---
CHIEF COMPLAINT: HISTORY OF PRESENT ILLNESS: The patient is a very pleasant 84-year-old male with past medical history of chronic atrial fibrillation, currently in sinus rhythm, diabetes, hypothyroidism, and chronic kidney disease, who presents to the hospital with complaints of slurred speech. The patient's was at the bedside who states that after having breakfast, the patient was noted to get really weak, dropped his plate from his right hand, started mumbling, which concerned her. The patient stated that his symptoms resolved. She called the EMS and the patient still continued to have some mumbling and continued to have some generalized weakness. The patient at this time was brought into the ER for further evaluation. According to her, she has not noticed the patient having any fevers or chills, any nausea, vomiting, or diarrhea. The patient does have a chronic cough, it is most likely secondary to exposure at his work in his younger days. The patient currently denies any fevers, chills, any nausea, vomiting, or diarrhea. ALLERGIES: ALLERGIC TO PENICILLIN, UNKNOWN REACTION. MEDICATIONS: He takes; 1. Coreg 25 mg b.i.d. 2. Synthroid 75 mcg daily. 3. Glipizide 10 mg b.i.d. 4. Lisinopril 40 mg daily. PAST MEDICAL HISTORY: 1. History of cardiomyopathy. 2. He has a pacemaker and automatic implantable cardioverter-defibrillator. 3. He has diabetes type 2. 4. Hypertension. 5. Dyslipidemia. 6. Chronic kidney disease stage 3. 7. The patient also has a history of atrial fibrillation and patient has also has had multiple bleeds and is currently off all anticoagulation including aspirin and Plavix. PAST SURGICAL HISTORY: He has had back surgery. He has an AICD. PSYCHIATRIC HISTORY: Reviewed and negative. SOCIAL HISTORY: He is currently . He is a full code. Lives with his . Denies any alcohol use, drug use, or smoking history. FAMILY HISTORY: No history of heart disease, strokes or cancers. REVIEW OF SYSTEMS: All negative except for the ones mentioned above in the HPI. PHYSICAL EXAMINATION: VITAL SIGNS: As of the following; temperature of 97.5, 22, 98 on room air, pulse is 71, 148/79. GENERAL: He is awake, alert, and oriented x3. He is hard of hearing. Does not appear to be in any distress. HEENT: Normocephalic, atraumatic. No lymphadenopathy noted. Pupils are equal and reactive to light. CV: S1 and S2 present. No murmurs, rubs, or gallops. LUNGS: Clear to auscultation. No rhonchi or wheezes noted. ABDOMEN: Soft and nontender. Bowel sounds are present x2. EXTREMITIES: No edema. Pedal pulses are present x2. NEUROVASCULAR: There are no focal deficits noted. SKIN: No cuts, lesions or bruises noted. LABORATORY RESULTS: As of the following; WBCs of 8.5, hemoglobin of 11.6, hematocrit of 34.2, platelets of 236. Chemistry: Sodium of 139, potassium of 4.6, BUN of 47, creatinine of 2.0, glucose of 200. LFTs are normal. CK is 29. IMAGING: The patient did have a CT head, which did not indicate any acute intracranial processes. The patient also had a chest x-ray, which indicated parenchymal opacities at the right base, which may represent possible infiltrate. ASSESSMENT AND PLAN: The patient is a very pleasant 84-year-old male, who presents to the hospital with slurred speech. 1. Slurred speech. Possible transient ischemic attack, possible metabolic from his underlying pneumonia. I will cover him with antibiotics. Also CT head was negative. I will do an echocardiogram and carotid ultrasounds. The patient is unable to have an MRI due to the automatic implantable cardioverter-defibrillator. The patient cannot have an aspirin or Plavix due to severe bleeds in the past. He is currently on a statin. We will continue. We will check a lipid panel in the morning. 2. Pneumonia. The patient does have a right lower infiltrate. I will treat him as a community-acquired pneumonia with Levaquin and continue to monitor. 3. History of diabetes. We will continue his home medications. 4. Chronic kidney disease. He has acute kidney injury on chronic kidney disease. We will continue to monitor. We will provide him some gentle hydration and then recheck his levels in the morning. 5. Deep venous thrombus prophylaxis. We will only put patient on sequential compression devices, especially since the fact that he has had significant bleeding with just aspirin. Job ID: [id number]
[2019-02-21] MEDS ORDERED: Lorazepam 2 MG/ML VIAL SLOW IVP PRN (01:30)
[2019-02-21 05:54] LABS: #Eosinphils 0.3 thou/uL (0.0-0.7); #Lymphocytes 1.1 thou/uL (1.20-3.40); #Monocytes 0.7 thou/uL (0.11-0.59); #Neutrophils 6.1 thou/uL (1.40-6.50); %Basophils 0.2 % (0.0-1.0); %Eosinophils 3.1 % (0.0-10.0); %Lymphocytes 13.7 % (21.0-51.0); %Monocytes 8.9 % (0.0-10.0); %Neutrophils 74.2 % (42.0-75.0); Hemoglobin 10.9 g/dL (14.0-18.0); Mean Corpuscular HGB CONC 33.7 g/dL (32.0-36.0); Mean Corpuscular Hemoglobin 30.3 pg (27.0-31.0); Mean Corpuscular Volume 90.1 fL (78.0-98.0); Mean Platelet Volume 8.5 fL (7.4-10.4); Platelet Count 224 thou/uL (130-400); RBC Distribution Width 12.3 % (11.5-14.5); Red Blood Cell (RBC) Count 3.58 mill/uL (4.70-6.10); White Blood Cell (WBC) Count 8.2 thou/uL (4.8-10.8)
[2019-02-21] MEDS ORDERED: Levothyroxine Sodium 100 MCG TAB PO SCH (06:00)
[2019-02-21 06:25] LABS: Anion Gap 12 mmol/L (10-20); BUN (Urea Nitrogen) 36 mg/dL (8.4-25.7); Calc. Creatinine Clearance 34 mL/min (70-130); Carbon Dioxide 23 mmol/L (23-31); Chloride 107 mmol/L (98-107); Estimated GFR-MDRD 38; Glucose 196 mg/dL (83-110); Potassium 4.3 mmol/L (3.5-5.1); Sodium 138 mmol/L (136-145)
--- NOTE | 2019-02-21 07:43 | ULT ---
EXAM: Carotid ultrasound HISTORY: Stroke/TIA COMPARISON: None TECHNIQUE: Multiplanar grayscale and color Doppler images were obtained in a carotid ultrasound. Spec tral analysis of the Doppler waveforms were performed. FINDINGS: No significant plaque is visualized in either internal carotid artery. No significant plaque is seen in either common carotid artery. The Doppler waveforms are normal in the visualized vessels. Peak systolic velocity in the right internal carotid artery 71 cm/s. Peak systolic velocity in the right common carotid artery 80 cm/s. Peak systolic velocity in the left internal carotid artery 44 cm/s. Peak systolic velocity in the left common carotid artery 45 cm/s. Both vertebral arteries demonstrate antegrade flow without focal stenosis. Evaluation of the vertebra l arteries was limited. IMPRESSION: No evidence of hemodynamically significant stenosis.
[2019-02-21] MEDS: glipiZIDE 10 MG TAB PO SCH (08:47)
[2019-02-21] MEDS ORDERED: Ipratropium Bromide 2.5 ml Neb NEB PRN (08:47)
[2019-02-21] MEDS: Carvedilol 25 MG TAB PO SCH (08:48)
[2019-02-21] MEDS ORDERED: Saccharomyces boulardii 250 MG CAP PO SCH (09:00)
[2019-02-21] MEDS ORDERED: Alogliptin 25 MG TAB PO SCH (09:00)
[2019-02-21 11:54] VITALS: BP 152/73; TEMP 97.9
--- NOTE | 2019-02-21 16:28 | DIS ---
DATE OF ADMISSION: 02/20/2019 DATE OF DISCHARGE: 02/21/2019 DISCHARGE DISPOSITION: Home. PRIMARY DISCHARGE DIAGNOSES: 1. Right lung pneumonia. 2. Acute encephalopathy. SECONDARY DISCHARGE DIAGNOSES: 1. Dementia. 2. History of biventricular pacemaker. 3. Diabetes mellitus type 2. 4. History of cardiomyopathy. 5. Chronic kidney disease stage 3. 6. Hypertension. 7. Dyslipidemia. 8. History of chronic atrial fibrillation, not on any anticoagulation due to GI bleed in the past. PROCEDURES DONE DURING HOSPITALIZATION: CT of brain without contrast done showed no significant acute intracranial process. No mass or bleed was seen. Stable atrophy and chronic white matter ischemic change were seen. Chest x-ray done showed parenchymal opacity at the right lung base may represent inflammatory infiltrate and/or atelectasis. Carotid Doppler done showed no hemodynamically significant stenosis. H and H 11 and 32, platelet count 224, MCV is 90, white count of 8. Admitting BUN and creatinine were 47 and 2.0. Discharge BUN and creatinine were 36 and 1.7. One set of troponin was negative. Albumin 3.4. DISCHARGE MEDICATIONS: 1. Levaquin 250 mg p.o. daily for another 5 days. 2. Synthroid 100 mcg p.o. daily. 3. Sertraline 50 mg p.o. daily. 4. Lisinopril 20 mg daily. 5. Xalatan eye drops as before. 6. Centrum Silver 1 tablet daily. 7. Colace 50 mg twice daily. 8. Glipizide 10 mg twice daily. 9. Vitamin D3 of 4000 units p.o. daily. 10. Coreg 12.5 mg p.o. twice daily. 11. Brimonidine eye drops as before. ALLERGIES: ALLERGIC TO PENICILLIN. DISCHARGE PLAN: The patient to follow up with primary care physician in 1 week. He also needs to follow up with Dr. Swanson, his rail technician, in 2 to 3 weeks, Dr. Javid Richardson. BRIEF COURSE DURING HOSPITALIZATION: The patient initially was brought to emergency room with complaints of slurred speech and generalized weakness. The patient has underlying dementia and could not contribute to the history initially. He has had multiple workups done, and the patient had a complete evaluation done in the ER including CT of brain and chest x-ray. Chest x-ray revealed possible pneumonia in the right lung base, where he has had prior scarring and biopsies done. 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 He follows up with Dr. Swanson for the same and has had biopsies done in the right lung in the past per . He was placed on bronchodilators and antibiotics. The patient has underlying dementia and was trying to get out of bed and was having a hard time during his brief stay here. In view of normal white count with no fever as such, it was deemed the patient could be treated with oral Levaquin at home and to follow up with Dr. Swanson in 2 to 3 weeks and primary care physician in 1 week. He has had a complete stroke workup done, which does not reveal any acute CVA. His initial presentation was likely due to mild pneumonia and had metabolic encephalopathy, which is still present at the time of discharge and it is confounded by his underlying dementia as well. He was hydrated gently during his brief stay here. The patient has adequate help with resources at home. He has also had home health evaluation done along with physical therapy through [place] and this will be shortly initiated per at bedside. He is being discharged home to follow up with his primary care physician in 1 week. Please note, I have seen and examined the patient on the day of discharge. Job ID: [id number] [facility]
[2019-02-22] MEDS ORDERED: Prevnar 13-Val Conj/PF 0.5 ML SYRINGE IM ONE (09:00)
== END 2019-02-21 12:24 | disposition home health service (06) | DRG 193 ==
LOC: ERS 13:21 → 2SE 17:33 → OBSVTOIN 19:56
PROVIDERS: ADMIT Internal Medicine; ATTEND Internal Medicine
DX: J18.9 Pneumonia, unspecified organism (principal); G93.41 Metabolic encephalopathy; N17.9 Acute kidney failure, unspecified; I48.2 Chronic atrial fibrillation; E03.9 Hypothyroidism, unspecified; E11.22 Type 2 diabetes mellitus with diabetic chronic kidney disease; I12.9 Hypertensive chronic kidney disease with stage 1 through stage 4 chronic kidney disease, or unspecified chronic kidney disease; N18.3 Chronic kidney disease, stage 3 (moderate); E78.00 Pure hypercholesterolemia, unspecified; F03.90 Unspecified dementia, unspecified severity, without behavioral disturbance, psychotic disturbance, mood disturbance, and anxiety; J60 Coalworker's pneumoconiosis; Z88.0 Allergy status to penicillin; Z79.899 Other long term (current) drug therapy; Z79.84 Long term (current) use of oral hypoglycemic drugs; Z95.810 Presence of automatic (implantable) cardiac defibrillator
CPT/HCPCS: 36415; 36416; 70450; 71045; 80048; 80053; 81001; 82550; 84484; 85025; 85610; 85730; 93005; 93306; 93880; J1956; J2060

== ENCOUNTER 2019-03-28 00:22 | Observation (INO) | payer MEDICARE, OTHER ==
[2019-03-28 00:54] LABS: #Basophils 0.1 thou/uL (0.0-0.2); #Eosinphils 0.2 thou/uL (0.0-0.7); #Lymphocytes 1.1 thou/uL (1.20-3.40); #Monocytes 0.9 thou/uL (0.11-0.59); #Neutrophils 10.7 thou/uL (1.40-6.50); %Basophils 0.6 % (0.0-1.0); %Eosinophils 1.7 % (0.0-10.0); %Lymphocytes 8.6 % (21.0-51.0); %Neutrophils 82.1 % (42.0-75.0); Hemoglobin 13.1 g/dL (14.0-18.0); Mean Corpuscular HGB CONC 32.9 g/dL (32.0-36.0); Mean Corpuscular Hemoglobin 28.9 pg (27.0-31.0); Platelet Count 208 thou/uL (130-400); RBC Distribution Width 12.8 % (11.5-14.5); Red Blood Cell (RBC) Count 4.54 mill/uL (4.70-6.10); White Blood Cell (WBC) Count 13.1 thou/uL (4.8-10.8)
[2019-03-28 01:16] LABS: ALT (SGPT) 14 U/L (8-55); AST (SGOT) 16 U/L (5-34); Albumin 3.7 g/dL (3.4-4.8); Alkaline Phosphatase 120 U/L (40-150); Anion Gap 14 mmol/L (10-20); BUN (Urea Nitrogen) 32 mg/dL (8.4-25.7); Bilirubin, Total 0.3 mg/dL (0.2-1.2); Calc. Creatinine Clearance 0 mL/min (70-130); Calcium 10.2 mg/dL (7.8-10.44); Carbon Dioxide 26 mmol/L (23-31); Chloride 102 mmol/L (98-107); Estimated GFR-MDRD 37; Globulin 3.7 g/dL (2.4-3.5); Glucose 217 mg/dL (83-110); Potassium 4.2 mmol/L (3.5-5.1); Protein, Total 7.4 g/dL (5.8-8.1); Sodium 138 mmol/L (136-145)
[2019-03-28] MEDS ORDERED: Aspirin 325 MG TAB ONE (05:37)
[2019-03-28 06:19] LABS: CKMB 1.6 ng/mL (0-6.6)
[2019-03-28] MEDS ORDERED: Ondansetron ODT 4 MG TAB SL PRN (08:00)
[2019-03-28] MEDS ORDERED: Acetaminophen 325 MG TAB PO PRN ×2 (08:00→09:15)
[2019-03-28] MEDS ORDERED: Ondansetron PF 4 MG/2 ML Vial IVP PRN ×2 (08:00→09:15)
[2019-03-28 08:19] VITALS: BMI 22.7
[2019-03-28] MEDS ORDERED: Ondansetron ODT 4 MG TAB PO PRN (09:15)
[2019-03-28] MEDS ORDERED: hydrALAZINE 20 MG/ML VIAL SLOW IVP PRN (09:15)
[2019-03-28] MEDS ORDERED: Dextrose 5% in Water 1,000 ML IV PRN (09:15)
[2019-03-28] MEDS ORDERED: Dextrose 50% Abboject 50 ML SYRINGE SLOW IVP PRN (09:15)
[2019-03-28] MEDS ORDERED: HumaLOG 300 UNITS/3 ML VIAL SC PRN ×2 (09:15)
[2019-03-28 09:45] LABS: Troponin I 0.024 ng/mL (< 0.028)
--- NOTE | 2019-03-28 10:11 | CT ---
PRELIMINARY REPORT/[facility]/EMERGENCY AFTER HOURS PROCEDURE: EXAM: CT Angiography Chest With Contrast EXAM DATE/TIME: 03/28/2019 3:40 AM CLINICAL HISTORY: 84 years old, male; Prior surgery; Patient HX: Er8; 84yom w/hx of cardiomyopathy, afib, aicd, dm, HTN presents with chest pain. PT states gets pain intermittently. was just told about pain tonight. PT states its aching in center of chest TECHNIQUE: Imaging protocol: Axial computed tomographic angiography images of the chest with intravenous contras t using CT angiography protocol. Coronal and sagittal reformatted images were created and reviewed. 3D rendering: MIP reconstructed images were created and reviewed. COMPARISON: No relevant prior studies available. FINDINGS: Pulmonary arteries: Evaluation for pulmonary embolus is limited substantially by artifact and contras t timing. No large central PE. Aorta: Atherosclerotic aorta. No aneurysm or acute aortic syndrome. Lungs: Multiple small subpleural nodules measuring up to 3 mm in size, indeterminate, likely clinical ly insignificant. Mild emphysema. Multifocal subsegmental atelectasis and scarring with suggestion of mild peripheral pulmonary fibrosis. Pleural space: Unremarkable. No pneumothorax. No pleural effusion. Heart: Trace pericardial effusion. Cardiomegaly. Cardiac device in place. Mediastinum: Small hiatal hernia. Esophagus is unremarkable. Lymph nodes: Mildly enlarged mediastinal and hilar lymph nodes which are partially calcified, presuma melanie representing prior granulomatous disease. Bones/joints: Unremarkable. No acute fracture. Soft tissues: Unremarkable. IMPRESSION: Trace pericardial effusion. EXAM: CT Angiography Abdomen With Contrast EXAM DATE/TIME: 03/28/2019 3:40 AM CLINICAL HISTORY: 84 years old, male; Prior surgery; Patient HX: Er8; 84yom w/hx of cardiomyopathy, afib, aicd, dm, HTN presents with chest pain. PT states gets pain intermittently. was just told about pain tonight. PT states its aching in center of chest TECHNIQUE: Imaging protocol: Axial computed tomographic angiography images of the abdomen with intravenous contr ast material. Coronal and sagittal reformatted images were created and reviewed. 3D rendering: MIP reconstructed images were created and reviewed. COMPARISON: No relevant prior studies available. FINDINGS: VASCULATURE: Aorta: No aortic aneurysm. No aortic dissection. Celiac trunk and mesenteric arteries: No occlusion or significant stenosis. Renal arteries: No occlusion or significant stenosis. ABDOMEN: Liver: Normal. No mass. Gallbladder and bile ducts: Cholelithiasis. No cholecystitis or biliary ductal dilatation. Pancreas: Normal. No ductal dilation. Spleen: Normal. No splenomegaly. Adrenals: Indeterminate 3 cm left adrenal nodule contains foci of low-intermediate density and gross fat. Kidneys and ureters: Bilateral renal cysts. 4 cm exophytic right renal lesion does not meet strict CT criteria for a cyst, likely due to regarding artifact causing artificial elevation of attenuation co efficient, and is indeterminate, most likely a cyst. Stomach and bowel: No bowel wall thickening or intestinal obstruction. Colonic diverticulosis. No div erticulitis. Appendix: Normal appendix. Intraperitoneal space: 3 cm AAA. 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 2 cm left common iliac ar mike aneurysm. No rupture. Bones/joints: Vertebral fusion hardware. Soft tissues: Unremarkable. Lymph nodes: Unremarkable. No enlarged lymph nodes. IMPRESSION: No acute findings. Thank you for allowing us to participate in the care of your patient. Dictated and Authenticated by: Rambo Tillman MD 03/28/2019 4:56 AM Central Time ([place] & [place]) FINAL REPORT CT ANGIO OF CHEST AND ABDOMEN PERFORMED WITH IV CONTRAST ENHANCEMENT AND 3D RECONSTRUCTIONS: Date: 03/28/19 HISTORY: Chest and back pain. Atrial fibrillation. Elevated blood pressure. COMPARISON: 08/14/17 CT abdomen and pelvis. FINDINGS: There is respiratory artifact present on this examination. There is some interstitial fibrotic lung c hange present with a confluent infiltrative process. Small subpleural nodules are incidentally seen. From what is seen of the lungs on the previous CT of the abdomen, these changes appear stable. There are some calcified hilar and mediastinal lymph nodes present, compatible with old granulomatous disease. The thoracic aorta shows atherosclerotic change. It is not aneurysmal and there is no disse ction. A small hiatal hernia is noted. CT angio of abdomen was performed with intravenous contrast enhancement and 3D reconstructions. The l iver, spleen, and pancreas regions appear unremarkable. There are gallstones noted. Right and left adrenal glands, and right and left kidneys are normal in size. Hepatic cysts seen bila terally. The exophytic right renal lesion measuring in the 4.[address] Hounsfield unit number s higher than typically seen for a cyst, but it is minimally changed in size from approximately 3.5 t o 4.0 cm, and is probably just related to a cyst with debris. There is no significant periaortic or m esenteric adenopathy. There is some mild aneurysmal dilatation of the infrarenal aorta, which measures in the 3.0 cm range, with bifurcation measuring 2.9 cm, and aneurysmal dilatation of both common iliac arteries on the ri ght side. This is approximately 2.6 cm, and on the left, approximately 1.8 cm. There are no signs of dissection. IMPRESSION: 1. No CT evidence of aortic dissection. 2. Interstitial fibrotic lung change. 3. 3.0 cm infrarenal abdominal aortic aneurysm with mild aneurysmal dilatation of both common iliac arteries. 4. Small hiatal hernia. 5. Gallstones. 6. Bilateral renal cysts. This report is in agreement with the preliminary report issued by [facility].
--- NOTE | 2019-03-28 10:22 | RAD ---
CHEST 2 VIEWS: Date: 03/28/19 HISTORY: Chest pain. COMPARISON: 02/20/19. FINDINGS: Left-sided transvenous defibrillator with lead position, unchanged. Enlarged cardiac silhouette. Fire Control Technician G moises changes of lung parenchyma. No pneumothorax or osseous abnormalities. IMPRESSION: Chronic changes. POS: [facility]
[2019-03-28] MEDS ORDERED: ISOVUE-370 76%-LOCM 1 ML ONE (11:23)
[2019-03-28] MEDS ORDERED: ADENOSINE 60 MG/20 ML VIAL ONE (12:48)
[2019-03-28] MEDS ORDERED: Nitroglycerin 2% Ointment 1 INCH/1 GM Packet TOP SCH (14:00)
--- NOTE | 2019-03-28 14:42 | NM ---
NUCLEAR MEDICINE CARDIAC STRESS WITH EJECTION FRACTION AND WALL MOTION: HISTORY: Chest pain. COMPARISON: None. TECHNIQUE: The patient was administered 9 mCi of technetium-99m sestamibi for rest imaging and 29.10 mCi of tech netium-99m sestamibi for stress imaging. Cardiac gating is performed. FINDINGS: On the stress attenuation correction images, there is homogeneous distribution of the radiotracer. No reversibility or fixed defect. TID is 1.15. End-diastolic volume is 129 mL. End-systolic volume is 80 mL. CARDIAC GATING: Global hypokinesis. Ejection fraction is 38%. IMPRESSION: 1. No evidence of reversibility or fixed defect. 2. Global hypokinesis with a 38% ejection fraction. POS: [facility]
[2019-03-28 15:26] VITALS: TEMP 98
[2019-03-28 15:34] VITALS: BP 166/74
--- NOTE | 2019-03-28 16:22 | HP ---
PRIMARY CARE PHYSICIAN: Dr. Espinosa at [facility] CHIEF COMPLAINT: Chest pain. HISTORY OF PRESENT ILLNESS: Please note that the history of present illness is very limited due to the patient has severe difficulty hearing even with his hearing aids in and his is acting primarily as the historian. Mr. Bardales is a very pleasant 84-year-old gentleman, who has a history of diabetes mellitus and atrial fibrillation. He was in his usual state of health until he says a week before admission, but his says just one day. He has been having chest pain off and on, and on the day he went to the emergency room, he had just gone to bed that night and told his that he was having some aching in his chest. He cannot rate it as far as whether or not it is mild, moderate, or severe. He denies any radiation. He says it was not worse with a deep breath. He did not have any shortness of breath or diaphoresis. But his says she gave him two Rolaids and when it did not get better after that, she got concerned and brought him to the emergency room. The pain lasted about 1 or 2 hours. He is not sure exactly when it left or if anything actually helped, but currently, he is not having any chest pain. In the ER, they did a CT scan of the chest to rule out dissection and PE. This was negative, and because he had a troponin in the equivocal range, he is being placed in observation. REVIEW OF SYSTEMS: CONSTITUTIONAL: There have been no fevers or chills. No night sweats. No weight loss. HEENT: No headaches. No dizziness. No visual changes. No sore throat, rhinorrhea, or neck pain. No adenopathy. PULMONARY: No hemoptysis. No cough. No wheezing. CARDIOVASCULAR: As the history of present illness. GASTROINTESTINAL: No abdominal pain. No nausea. No vomiting. No change in bowels. GENITOURINARY: No urinary frequency or hematuria. No hesitancy. NEUROLOGIC: No focal weakness or numbness. No seizures. PSYCHIATRIC: No symptoms of anxiety or depression. SKIN AND INTEGUMENT: No skin changes. No rash. PAST MEDICAL HISTORY: Significant for atrial fibrillation, which is intermittent, he is not on anticoagulation; diabetes mellitus; hypothyroidism; chronic kidney disease, stage 3; hypertension; and history of previous GI bleed, in which his says he almost and this was attributed to Plavix. PAST SURGICAL HISTORY: He has had a defibrillator and a pacer as well as back surgery. ALLERGIES: TO PENICILLIN. SOCIAL HISTORY: He is . He is a full code. He is a nonsmoker and nondrinker. FAMILY HISTORY: Significant for heart disease in the mother as well as cancer. CURRENT MEDICATIONS: Include; 1. Carvedilol 12.5 mg twice daily. 2. Vitamin D3, 4000 units daily. 3. Docusate 50 mg twice a day. 4. Glipizide 10 mg twice daily. 5. Lisinopril 20 mg daily. 6. Vitamin A, C, E and zinc as well as copper, daily. 7. Levothyroxine 100 mcg p.o. daily. PHYSICAL EXAMINATION: GENERAL: He is alert and oriented. He appears to be in no acute distress. He is lying in the bed and he looks comfortable. He is cooperative. VITAL SIGNS: Blood pressure is 169/74, heart rate 70, respiratory rate is 18, and temperature is 98.2. HEENT: Pupils are equal, round, and reactive. Extraocular muscles are intact. In the sclerae, he has some mild conjunctival injection. Throat, he is edentulous. There is no erythema, no exudates. NECK: There is no adenopathy. No bruits. LUNGS: Clear except for an occasional wheeze on both sides. CARDIOVASCULAR: He has a normal S1 and S2. There was no S3 or S4. No murmurs or clicks. No rubs. ABDOMEN: Obese. It is soft. It is nontender and nondistended. Positive for bowel sounds. There is no rebound, no guarding. No organomegaly. EXTREMITIES: He has trace pedal edema. No calf tenderness. No joint effusions. NEUROLOGIC: His cranial nerves are intact. Muscle strength is also intact. SKIN AND INTEGUMENT: No skin changes. No rashes. LABORATORY RESULTS: EKG, it is a paced rhythm, this is by my reading. He has also had a chest x-ray showing cardiomegaly. The biventricular pacemaker is seen in place. On the right chest, he has obscuration of the right hemidiaphragm as well as some what appears to be chronic interstitial changes. This is also by my reading. Sodium is 138, potassium 4.2, chloride is 102, CO2 is 26, BUN of 32, creatinine 1.74, glucose is 217. Troponin is 0.032. White blood cell count 13.1, hemoglobin 13.1, hematocrit is 39.9, and platelet count was 208. Troponin is 0.026 and then also 0.032. ASSESSMENT: 1. This is a pleasant 84-year-old gentleman, who presents to the emergency room with chest pain. He has known factors for coronary artery disease including hypertension and diabetes. He has been evaluated for PE already and this was negative. He will be placed in observation and we will get a noninvasive stress test to help further stratify his risk of coronary artery disease. 2. Atrial fibrillation. His heart rate is currently controlled and is a paced rhythm and he is not on anticoagulation due to severe gastrointestinal bleed in the past. 3. Diabetes mellitus. He will be placed on a sliding scale insulin. We will hold metformin in the event he needs a cardiac catheterization during this stay. 4. Hypertension. Continue his home medications as well as p.r.n. medicines as well. Job ID: [id number]
[2019-03-28] MEDS ORDERED: Famotidine 20 MG TAB PO SCH (21:00)
--- NOTE | 2019-03-29 02:12 | DIS ---
DATE OF ADMISSION: 03/28/2019 DATE OF DISCHARGE: 03/28/2019 DISCHARGE DISPOSITION: Home. PRIMARY DISCHARGE DIAGNOSES: 1. Chest pain, probable noncardiac. 2. Hypertension. 3. Diabetes mellitus. 4. Hypothyroidism. DISCHARGE MEDICATIONS: Are the same and include: 1. Levothyroxine 100 mcg p.o. daily. 2. Vitamin A, C, E, and zinc as well as copper one tablet twice a day. 3. Lisinopril 20 mg daily. 4. Glipizide 10 mg twice daily. 5. Colace 50 mg twice a day. 6. Vitamin D3 4000 units daily. 7. Carvedilol 12.5 mg twice a day. IMAGING STUDIES: The patient had a CT dissection protocol done, in which there was no evidence of any acute findings. The patient also had a nuclear stress test in which there was no evidence of any reversible defect and there was evidence of global hypokinesis with an ejection fraction of approximately 38%. CODE STATUS: Full code. ALLERGIES: PENICILLIN. HOSPITAL COURSE: Mr. Bardales is a pleasant 84-year-old gentleman, who presented to the emergency room complaining of chest pain, which had been off and on for the last week and then he had a more urgent episode on the day of observation. The pain in his description was atypical, but given his risk factors for heart disease, he was brought in observation, ruled out and underwent a noninvasive stress test or noninvasive imaging, this was negative and his pain had resolved and therefore is being discharged home to have close outpatient followup. Job ID: [id number]
[2019-03-29] MEDS ORDERED: Enoxaparin Sodium 40 MG/0.4 ML SYRINGE SC SCH (09:00)
== END 2019-03-28 17:09 | disposition home or self-care (01) ==
LOC: ERS 00:22 → 2SW 07:29
PROVIDERS: ADMIT Internal Medicine; ATTEND Internal Medicine
DX: R07.9 Chest pain, unspecified (principal); I12.9 Hypertensive chronic kidney disease with stage 1 through stage 4 chronic kidney disease, or unspecified chronic kidney disease; E11.22 Type 2 diabetes mellitus with diabetic chronic kidney disease; N18.3 Chronic kidney disease, stage 3 (moderate); I48.91 Unspecified atrial fibrillation; E03.9 Hypothyroidism, unspecified; Z79.899 Other long term (current) drug therapy; Z88.0 Allergy status to penicillin; Z95.810 Presence of automatic (implantable) cardiac defibrillator
CPT/HCPCS: 71046; 71275; 78452; 80053; 80061; 82553; 82962; 84484 ×2; 85025; 93005; 93017; 94760; 99285; A9500; G0378 ×2; 36415; 36416; J0153; Q9966

== ENCOUNTER 2019-11-04 11:24 | Outpatient (CLI) | payer OTHER ==
--- NOTE | 2019-11-04 12:58 | CT ---
CT Abdomen WO Con HISTORY: Right-sided flank pain COMPARISON: 03/28/2019 and 08/16/2016 FINDINGS: Absence of oral and IV contrast reduces the sensitivity of the exam particularly for the evaluation o f solid organs and bowel. Chronic changes in the lung bases are again seen. Calcified gallstones again noted. Bilateral renal c ysts are again seen. No calculi are seen in the kidneys, visualized portions of the ureters. No hydroureteronephrosis is noted. A 3 cm infrarenal abdominal aortic aneurysm is stable. No free air or free fluid is seen in the abdomen. There are degenerative changes in the spine. Postop changes and metallic hardware noted in the lower lumbar spine. The small bowel loops are not abnormally dilated. There is fecal material in the colon. IMPRESSION: 1. Cholelithiasis 2. Bilateral renal cysts 3. No evidence of renal calculi are high-grade urinary tract obstruction 4. Stable 3 cm abdominal aortic aneurysm
== END 2019-11-04 11:25 | disposition home or self-care (01) ==
LOC: BICCT 11:24
DX: R10.9 Unspecified abdominal pain (principal); K80.20 Calculus of gallbladder without cholecystitis without obstruction; N28.1 Cyst of kidney, acquired; I71.4 Abdominal aortic aneurysm, without rupture
CPT/HCPCS: 74150

== ENCOUNTER 2020-09-15 03:33 | Emergency (ER) | payer OTHER ==
--- NOTE | 2020-09-15 08:04 | CT ---
PRELIMINARY REPORT/[facility]/EMERGENCY AFTER HOURS PROCEDURE: EXAM: CT Head and Cervical Spine Without IV contrast. CLINICAL HISTORY: FALL, HIT HEAD ON CHAIR. NO THINNERS, NO LOC TECHNIQUE: Axial computed tomography images were acquired of the head and the cervical spine without intravenous contrast. Sagittal and coronal reformatted images were obtained of the cervical spine. COMPARISON: CT\SR - CT BRAIN WO CON - 02/20/2019 01:43 PM CDT FINDINGS: BRAIN: No acute intraparenchymal hemorrhage. No suspicious mass lesion. No CT evidence for acute territorial infarct. No midline shift or extra-axial collection. Mild global parenchymal volume loss, likely age -related. Small periventricular hypodensity measuring CSF attenuation in the posterior right frontal lobe, slightly increased in size and suggestive of either prominent perivascular space given its sli ghtly linear configuration versus cystic encephalomalacia. This is slightly increased in size compar ed to 2019. VENTRICLES No hydrocephalus. ORBITS Status post bilateral cataract surgery. SINUSES AND MASTOIDS The paranasal sinuses and mastoid air cells are clear. SOFT TISSUES No significant facial or scalp soft tissue swelling evident. No radiopaque foreign body is seen. Bila teral centrilobular emphysema in the lung apices. No apical pneumothorax. BONES No acute osseous pathology evident. No acute fracture is evident on images of the head or cervical spine. Diffuse osteopenia. DISKS/DEGENERATIVE CHANGES Multilevel intervertebral disc space narrowing with degenerative changes of the endplates, uncoverteb ral joints, and facets, most severe at C5-C7. Mild spinal canal narrowing at C5-C7. Mild to moderat e bony neuroforaminal narrowing at C3-C7. Posterior cervical spine vertebral body alignment is within normal limits. IMPRESSION: 1. No acute intracranial findings. No acute intracranial injury evident. 2. No cervical spine fracture evident. ELECTRONICALLY SIGNED BY: Brady Acosta MD Sep 15, 2020 4:41:14 AM CHIMNEY BUILDER HELPER This report is intended for review by the ordering physician only, in accordance of law. If you recei ve this report in error, please call [facility] at [phone]. FINAL REPORT EMERGENT AFTER HOURS CT OF THE CERVICAL SPINE WITHOUT CONTRAST: HISTORY: Fall with head trauma and neck pain. FINDINGS/IMPRESSION: I agree with the findings and impression given in the preliminary report per [facility] physici an. There are moderate degenerative changes of the cervical spine without acute osseous abnormality. POS: EAA
--- NOTE | 2020-09-15 08:06 | CT ---
PRELIMINARY REPORT/[facility]/EMERGENCY AFTER HOURS PROCEDURE: EXAM: CT Head and Cervical Spine Without IV contrast. CLINICAL HISTORY: FALL, HIT HEAD ON CHAIR. NO THINNERS, NO LOC TECHNIQUE: Axial computed tomography images were acquired of the head and the cervical spine without intravenous contrast. Sagittal and coronal reformatted images were obtained of the cervical spine. COMPARISON: CT\SR - CT BRAIN WO CON - 02/20/2019 01:43 PM CDT FINDINGS: BRAIN: No acute intraparenchymal hemorrhage. No suspicious mass lesion. No CT evidence for acute territorial infarct. No midline shift or extra-axial collection. Mild global parenchymal volume loss, likely age -related. Small periventricular hypodensity measuring CSF attenuation in the posterior right frontal lobe, slightly increased in size and suggestive of either prominent perivascular space given its sli ghtly linear configuration versus cystic encephalomalacia. This is slightly increased in size compar ed to 2019. VENTRICLES No hydrocephalus. ORBITS Status post bilateral cataract surgery. SINUSES AND MASTOIDS The paranasal sinuses and mastoid air cells are clear. SOFT TISSUES No significant facial or scalp soft tissue swelling evident. No radiopaque foreign body is seen. Bila teral centrilobular emphysema in the lung apices. No apical pneumothorax. BONES No acute osseous pathology evident. No acute fracture is evident on images of the head or cervical spine. Diffuse osteopenia. DISKS/DEGENERATIVE CHANGES Multilevel intervertebral disc space narrowing with degenerative changes of the endplates, uncoverteb ral joints, and facets, most severe at C5-C7. Mild spinal canal narrowing at C5-C7. Mild to moderat e bony neuroforaminal narrowing at C3-C7. Posterior cervical spine vertebral body alignment is within normal limits. IMPRESSION: 1. No acute intracranial findings. No acute intracranial injury evident. 2. No cervical spine fracture evident. ELECTRONICALLY SIGNED BY: Brady Acosta MD Sep 15, 2020 4:41:14 AM ELECTRONICS PRODUCTION SUPERVISOR This report is intended for review by the ordering physician only, in accordance of law. If you recei ve this report in error, please call [facility] at [phone]. FINAL REPORT EMERGENT AFTER HOURS CT OF THE BRAIN WITHOUT CONTRAST: COMPARISON: 02/20/2019. FINDINGS/IMPRESSION: I agree with the findings and impression given in the preliminary report per [facility] physici an. No evidence of acute intracranial abnormality. POS: YOJANA
== END 2020-09-15 05:29 | disposition home or self-care (01) ==
LOC: ERS 03:33
DX: S00.31XA Abrasion of nose, initial encounter (principal); I48.91 Unspecified atrial fibrillation; E03.9 Hypothyroidism, unspecified; E78.5 Hyperlipidemia, unspecified; E78.00 Pure hypercholesterolemia, unspecified; Z79.899 Other long term (current) drug therapy; W01.10XA Fall on same level from slipping, tripping and stumbling with subsequent striking against unspecified object, initial encounter
CPT/HCPCS: 70450; 72125